=== PATIENT | female | born 1945 | race Two or more races ===

== ENCOUNTER 2020-07-25 11:34 | Inpatient (IN) | payer MEDICARE, OTHER ==
[~2020-07-25] VITALS: Ht 152.4 cm; Wt 100.0 kg
--- NOTE | 2020-07-25 11:45 | NUR ---
BIBA RA 39 from Home "Been Feeling sick x1wk cough/sweats now worse low O2 RA sats 86 given O2 at 6L now 95%". vs checked. hooked on monitor. iv access started blood draw done sent to lab. awaiting md hernandez.
--- NOTE | 2020-07-25 11:52 | NUR ---
MOVE SHEET SUBMITTED AND CALLED FOR TELE BED.
--- NOTE | 2020-07-25 11:59 | NUR ---
pt stated she is unable to provide urine specimen at the moment. will try to collect specimen after iv fluids.
[2020-07-25] MEDS ORDERED: IV NS 0.9% 1,000 ML BAG IV ONE (12:00)
[2020-07-25] MEDS ORDERED: LOSA1TAB39 PO (12:11)
[2020-07-25] MEDS ORDERED: ASPI-1420 PO (12:11)
[2020-07-25] MEDS ORDERED: MULT-661 PO (12:11)
[2020-07-25] MEDS ORDERED: ERGO500014 PO (12:11)
[2020-07-25] MEDS ORDERED: OMEG100019 PO (12:11)
[2020-07-25] MEDS ORDERED: MECL-159 PO (12:11)
[2020-07-25] MEDS ORDERED: CLON0.1T PO (12:11)
[2020-07-25] MEDS ORDERED: ESOM40CA52 PO (12:12)
[2020-07-25] MEDS ORDERED: VANCOMYCIN 1 GM in IV D5W 250 ML IV ONE (12:30)
[2020-07-25] MEDS ORDERED: PIPERACILLIN /TAZOBACTAM 3.375 G in IV D5W 50 ML IV ONE (12:30)
[2020-07-25 13:08] LABS: BASOPHILS % (AUTO) 0.2 % (0.0-2.0); HEMATOCRIT 38 % (33-45); HEMOGLOBIN 12.7 g/dL (11.5-14.8); LYMPHOCYTES # (AUTO) 1.2 /CMM (0.8-4.8); LYMPHOCYTES % (AUTO) 11.1 % (20.0-44.0); MEAN CORPUSCULAR HGB CONC 34 g/dl (31.0-36.0); MEAN CORPUSCULAR VOLUME 92 fL (82-100); MONOCYTES # (AUTO) 0.6 /CMM (0.1-1.30); MONOCYTES % (AUTO) 5.3 % (2.0-12.0); NEUTROPHILS # (AUTO) 8.7 /CMM (1.8-8.9); NEUTROPHILS % (AUTO) 82.4 % (43.0-81.0); PLATELET COUNT (AUTO) 394 /CMM (150-450); RED BLOOD CELL COUNT(AUTO) 4.12 MIL/uL (4.0-5.2); WHITE BLOOD COUNT (AUTO) 10.6 K/uL (4.3-11.0)
[2020-07-25] MEDS ORDERED: VANCOMYCIN 1.5 GM in IV D5W 500ml IV ONE (13:30)
--- NOTE | 2020-07-25 13:31 | NUR ---
urine collected sent to lab
[2020-07-25 14:17] LABS: BILIRUBIN,DIRECT 0.4 mg/dL (0.0-0.2); BILIRUBIN,TOTAL 0.8 mg/dL (0.2-1.0); CALCIUM, SERUM 9.2 mg/dL (8.5-10.1); CREATININE 1.2 mg/dL (0.6-1.3); POTASSIUM 3.5 mmol/L (3.5-5.1); TOTAL PROTEIN, SERUM 8.7 g/dL (6.4-8.2)
[2020-07-25] MEDS ORDERED: HYDROCODONE/APAP 5/325MG TABLET PO PRN (15:00)
[2020-07-25] MEDS ORDERED: Z GUARD REMEDY 2 OZ OINT TP PRN (15:00)
[2020-07-25] MEDS ORDERED: ONDANSETRON HCL/PF 4 MG/2 ML VIAL IVP PRN (15:00)
[2020-07-25] MEDS ORDERED: ACETAMINOPHEN 325 MG TABLET PO PRN (15:00)
[2020-07-25] MEDS ORDERED: ENOXAPARIN SODIUM 40 MG/0.4 ML DISP.SYRIN SQ SCH (15:00)
[2020-07-25] MEDS ORDERED: IV NS 0.9% 1,000 ML IV PRN (15:00)
[2020-07-25] MEDS ORDERED: MAGNESIUM HYDROXIDE 30 ML UDC PO PRN (15:00)
--- NOTE | 2020-07-25 15:23 | NUR ---
covid swab chas;ected sent to lab
[2020-07-25 16:30] LABS: BILIRUBIN,URINE NEGATIVE (NEGATIVE); COLOR,URINE YELLOW (YELLOW); LEUKOCYTE ESTERASE ,URINE SMALL (NEGATIVE); NITRITE, URINE POSITIVE (NEGATIVE); PROTEIN,URINE NEGATIVE (NEGATIVE); UGLUCOSE NEGATIVE (NEGATIVE); UROBILINOGEN,URINE 0.2 EU/dL (0.2)
[2020-07-25 16:37] LABS: BACTERIA,URINE 1+ /HPF (None Seen); SQUAMOUS EPITHELIAL CELL,UR Few /HPF (None Seen); URIC ACID CRYSTALS,URINE Many /HPF (None Seen)
--- NOTE | 2020-07-25 19:24 | NUR ---
covid antigen collected sent to lab
[2020-07-25] MEDS ORDERED: HYDROCHLOROTHIAZIDE 25 MG TABLET PO ONE (20:00)
[2020-07-25] MEDS ORDERED: AZITHROMYCIN 250 MG TABLET PO SCH ×2 (20:00)
[2020-07-25] MEDS ORDERED: LOSARTAN POTASSIUM 25 MG TABLET PO ONE (20:00)
--- NOTE | 2020-07-25 20:08 | NUR ---
REC'D POS KAIA. AWARE
--- NOTE | 2020-07-25 20:47 | NUR ---
JAEL BILLINGSLEY ENERGY MANAGER PAGED TO CLARIFY AZITHROMYCIN ORDER. AWAITING CALL BACK.
[2020-07-25] MEDS ORDERED: DEXAMETHASONE SOD PHOSPHATE 10 MG/ML VIAL ONE (20:57)
[2020-07-25] MEDS ORDERED: CEFTRIAXONE 1GM BAG (ER ONLY) 50 ML IV ONE (20:57)
[2020-07-25] MEDS ORDERED: LOSARTAN POTASSIUM 25 MG TABLET ONE (20:58)
[2020-07-25] MEDS ORDERED: HYDROCHLOROTHIAZIDE 25 MG TABLET ONE (20:58)
[2020-07-25] MEDS ORDERED: GUAIFENESIN LA 600 MG TABLET.SA PO ONE (20:58)
[2020-07-25] MEDS ORDERED: PIPERACILLIN /TAZOBACTAM 2.25 G in IV D5W 50 ML IV SCH (21:00)
[2020-07-25] MEDS: DEXAMETHASONE SOD PHOSPHATE 4 MG/ML VIAL IV SCH (21:15)
[2020-07-25] MEDS: CEFTRIAXONE 1 G in IV D5W 50 ML IV SCH (21:15)
[2020-07-25] MEDS: APIXABAN 5 MG TABLET PO SCH (21:16)
[2020-07-25] MEDS: GUAIFENESIN LA 600 MG TABLET.SA PO SCH (21:16)
--- NOTE | 2020-07-25 21:39 | NUR ---
REPORT GIVEN TO GOKUL GÓMEZ FOR ARIANNA; PT WILL BE TRANSPORTED TO 2ND FLOOR
[2020-07-25] MEDS ORDERED: AZITHROMYCIN 250 MG TABLET PO ONE (22:00)
[2020-07-25] MEDS ORDERED: ZOLPIDEM TARTRATE 5 MG TABLET PO PRN (22:00)
[2020-07-25 22:30] VITALS: BP 126/72
--- NOTE | 2020-07-25 23:00 | NUR ---
TELE/RN OPENING NOTES RECEIVED PATIENT FROM ER PATIENT ARRIVED ON UNIT AT 2200 HOURS. PATIENT SUSTAINED NO INJURIES DURING TRANSPORT TO ROOM 203. PATIENT SAFELY TRANSFERRED TO BED. PATIENT IS ALERT AND ORIENTED X 4. PATIENT ON 6L OXYGEN NC TOLERATING WELL AT 93%. PATIENTS BREATHING IS EVEN AND UNLABORED. NO SIGNS OF RESPIRATORY DISTRESS NOTED. PATIENT NOTED PAIN FREE AT THIS TIME. PATIENT HAS IV ACCESS ON LEFT AC #20G AND LEFT HAND #20G, FLUSHING WELL. PATIENT SKIN IS INTACT. PATIENT SIGNED BELONGINGS LIST. PATIENT IN NO SIGNS OF DISTRESS AT THIS TIME. SAFETY MEASURES ARE IN PLACE, BED IS LOCKED AND PLACED IN THE LOWEST POSITION, SIDE RAILS UP X 2, CALL LIGHT IS WITHIN REACH. WILL CONTINUE TO MONITOR THROUGH OUT SHIFT.
[2020-07-26] VITALS (12 sets, daily range): BP systolic 106–138; BP diastolic 67–101
--- NOTE | 2020-07-26 06:30 | NUR ---
TELE/RN CLOSING NOTES PATIENT IN BED SLEEPING. PATIENT IS ALERT AND ORIENTED X 3. PATIENT BREATHING IS EVEN AND UNLABORED. NO SIGNS OF RESPIRATORY DISTRESS NOTED. PATIENT IN NO SIGNS OF DISTRESS. TELE READING SR 73. PATIENT HAS IV ACCESS ON LEFT AC AND RIGHT HAND #20G RUNNING NS AT 75 ML/HR. ALL NEEDS HAVE BEEN MET DURING SHIFT. SAFETY MEASURES ARE IN PLACED, BED IS LOCKED AND PLACED IN THE LOWEST POSITION, SIDE RAILS UP X 2, CALL LIGHT WITHIN REACH. WILL ENDORSE CARE TO DAY SHIFT NURSE.
[2020-07-26 06:44] LABS: BASOPHILS % (AUTO) 0.2 % (0.0-2.0); EOSINOPHILS % (AUTO) 0.8 % (0.0-6.0); HEMATOCRIT 37 % (33-45); HEMOGLOBIN 12.2 g/dL (11.5-14.8); LYMPHOCYTES # (AUTO) 1.5 /CMM (0.8-4.8); LYMPHOCYTES % (AUTO) 18.1 % (20.0-44.0); MEAN CORPUSCULAR HGB CONC 33 g/dl (31.0-36.0); MEAN CORPUSCULAR VOLUME 93 fL (82-100); MONOCYTES # (AUTO) 0.5 /CMM (0.1-1.30); MONOCYTES % (AUTO) 6.2 % (2.0-12.0); NEUTROPHILS # (AUTO) 6.2 /CMM (1.8-8.9); NEUTROPHILS % (AUTO) 74.7 % (43.0-81.0); PLATELET COUNT (AUTO) 374 /CMM (150-450); RED BLOOD CELL COUNT(AUTO) 3.97 MIL/uL (4.0-5.2); WHITE BLOOD COUNT (AUTO) 8.3 K/uL (4.3-11.0)
[2020-07-26 07:23] LABS: CALCIUM, SERUM 9.5 mg/dL (8.5-10.1); CREATININE 0.9 mg/dL (0.6-1.3); MAGNESIUM 2.2 mg/dL (1.8-2.4); PHOSPHORUS 4.5 mg/dL (2.5-4.9); POTASSIUM 3.6 mmol/L (3.5-5.1)
--- NOTE | 2020-07-26 07:30 | NUR ---
TELE/RN OPENING NOTE Patient is resting in bed, A&O x 3, easily arousable to verbal and tactile stimulation, Portuguese speaking. Breathing even and non-labored on 6 L via nasal cannula, no SOB noted. No respiratory or cardiac distress noted. On tele monitor, reading SR with BBB and PVCs 67. IV accesses noted on LAC #20g and L hand # 20g, both patent and intact, and flushing well, running NS @ 75 ml/hr. Bed locked to its lowest position, side rails x 2 up, call light in hand. Will continue with current medical management.
[2020-07-26] MEDS: LOSARTAN POTASSIUM 25 MG TABLET PO SCH (09:00)
[2020-07-26 09:40] LABS: C-REACTIVE PROTEIN 16.9 mg/dL (0.0-0.9)
[2020-07-26] MEDS: HYDROCHLOROTHIAZIDE 25 MG TABLET PO SCH (09:59)
[2020-07-26] MEDS: ASPIRIN EC 81 MG TABLET.DR PO SCH (09:59)
[2020-07-26] MEDS: MULTIVIT W/MINERALS 1 TAB TABLET PO SCH (10:00)
[2020-07-26] MEDS: AZITHROMYCIN 250 MG TABLET PO SCH (10:00)
[2020-07-26] MEDS: APIXABAN 5 MG TABLET PO SCH ×2 (10:01→16:47)
[2020-07-26] MEDS: PANTOPRAZOLE 40 MG TABLET.DR PO SCH (10:01)
[2020-07-26] MEDS: GUAIFENESIN LA 600 MG TABLET.SA PO SCH ×2 (10:01→21:47)
[2020-07-26] MEDS: DEXAMETHASONE SOD PHOSPHATE 4 MG/ML VIAL IV SCH (10:03)
[2020-07-26] MEDS ORDERED: REMDESIVIR (CHARGED) 200 MG, *LOADING DOSE 1 EA in IV NS 0.9% 210 ML IV ONE (12:00)
[2020-07-26] MEDS ORDERED: VANCOMYCIN 1.25 GM in IV D5W 250 ML IV SCH (13:00)
--- NOTE | 2020-07-26 13:02 | NUR ---
TELE/RN NOTE HAND DELIVERED COPY OF CONVALESCENT PLASMA IND FORM TO BLOOD BANK.
[2020-07-26] MEDS ORDERED: TEMAZEPAM 7.5 MG CAPSULE PO PRN (16:30)
--- NOTE | 2020-07-26 19:00 | NUR ---
TELE/RN CLOSING NOTE Patient is awake in bed, A&O x 3. All needs met and attended to. Breathing even and non-labored on 5 L via nasal cannula, no SOB noted. No respiratory or cardiac distress noted. On tele monitor, reading SR with BBB and PVCs 95. IV accesses noted on LAC #20g and L hand # 20g, both patent and intact, and flushing well. Fall precautions maintained. Will endorse to gravity prospecting operator nurse.
--- NOTE | 2020-07-26 19:30 | NUR ---
TELE/RN OPENING NOTES: RECEIVED PATIENT AWAKE IN BED, A&O X 3. [place] BUT ABLE TO UNDERSTAND AND COMMUNICATE MINIMAL YAKUT. BREATHING EVEN AND NON-LABORED ON 5 L VIA NASAL CANNULA, NO SOB NOTED. NO RESPIRATORY OR CARDIAC DISTRESS NOTED. ON TELE MONITOR, READING SR WITH BBB 70. IV ACCESSES NOTED ON LAC #20G AND L HAND # 20G, BOTH PATENT AND INTACT, AND FLUSHING WELL. FALL PRECAUTIONS MAINTAINED. HAS CONVALESCENT PLASMA SCHEDULED FOR TONIGHT. CONSENTS ARE SIGNED AND READY. WILL CONTINUE TO MONITOR PT ACCORDINGLY AND CONTINUE PLAN OF CARE.
--- NOTE | 2020-07-26 20:30 | NUR ---
TELE/RN NOTES: INITIAL VS STABLE AND WNL. BP: 138/80 HR: 75 TEMP 98.4. RR: 20. CONVALESCENT PLASMA COSIGNED AND WITNESSED BY 2 RNs, ROMY AND MARCELINO. STARTED TRANSFUSING AT 75MLS/HR AT THIS TIME AT LEFT HAND #20G. WILL CONTINUE TO MONITOR FOR ANY REACTIONS.
--- NOTE | 2020-07-26 20:45 | NUR ---
TELE/RN NOTES: VS STABLE AND WNL. CONVALESCENT PLASMA TRANSFUSING AT 75MLS/HR AT THIS TIME AT LEFT HAND #20G. NO ADVERSE REACTIONS AT THIS TIME. PT IS STABLE. NO C/O PAIN. WILL CONTINUE TO MONITOR PT AND VS Q15 MIN.
--- NOTE | 2020-07-26 22:27 | NUR ---
TELE/RN NOTES: CONVALESCENT PLASMA TRANSFUSED COMPLETELY. NO ADVERSE REACTIONS. PT STABLE. NO C/O PAIN. VSS AND WNL. WILL CONTINUE TO MONITOR.
[2020-07-26] MEDS: CEFTRIAXONE 1 G in IV D5W 50 ML IV SCH (22:33)
[2020-07-27] VITALS: BP 122/84
[2020-07-27 04:00] VITALS: BP 130/82
--- NOTE | 2020-07-27 06:19 | NUR ---
TELE/RN CLOSING NOTES: PT REMAINS A&O X 3. REMAINED STABLE ALL NIGHT, S/P CONVALESCENT PLASMA LAST NIGHT. BREATHING EVEN AND NON-LABORED ON 4 L VIA NASAL CANNULA, NO SOB NOTED. NO RESPIRATORY OR CARDIAC DISTRESS NOTED. ON TELE MONITOR, READING SR WITH BBB 70. IV ACCESSES NOTED ON LAC #20G AND L HAND # 20G, BOTH PATENT AND INTACT, AND FLUSHING WELL. FALL PRECAUTIONS MAINTAINED. KEPT PT WARM AND COMFORTABLE IN BED, CLEAN AND DRY. ALL NURSING NEEDS MET AND RENDERED, ALL DUE MEDS GIVEN ORDERED. WILL ENDORSED TO DAY SHIFT FOR ARIANNA.
[2020-07-27 07:13] LABS: BASOPHILS % (AUTO) 0.2 % (0.0-2.0); EOSINOPHILS % (AUTO) 0.1 % (0.0-6.0); HEMATOCRIT 36 % (33-45); LYMPHOCYTES # (AUTO) 1.5 /CMM (0.8-4.8); LYMPHOCYTES % (AUTO) 15.9 % (20.0-44.0); MEAN CORPUSCULAR HGB CONC 33 g/dl (31.0-36.0); MEAN CORPUSCULAR VOLUME 92 fL (82-100); MONOCYTES # (AUTO) 0.7 /CMM (0.1-1.30); MONOCYTES % (AUTO) 7.1 % (2.0-12.0); NEUTROPHILS # (AUTO) 7.4 /CMM (1.8-8.9); NEUTROPHILS % (AUTO) 76.7 % (43.0-81.0); PLATELET COUNT (AUTO) 434 /CMM (150-450); RED BLOOD CELL COUNT(AUTO) 3.93 MIL/uL (4.0-5.2); WHITE BLOOD COUNT (AUTO) 9.7 K/uL (4.3-11.0)
--- NOTE | 2020-07-27 07:20 | NUR ---
REFERENCE AND INSTRUCTION LIBRARIAN OPENING NOTES: PATIENT IS AWAKE AND VERBALLY RESPONSIVE. A/O X3, ABLE TO MAKE NEEDS KNOWN. BREATHING EVEN AND NON-LABORED, ON 4L O2 VIA NASAL CANNULA, NO SOB. ON TELE MONITORING, READING OF SR WITH BBB, HR IN THE 70'S. IV LINE ON LAC #20G AND L HAND # 20G, PATENT AND INTACT. SAFETY PRECAUTIONS IN PLACE: BED LOCKED AND ON LOWEST POSITION, SR UP X2, CALL LIGHT W/IN REACH. WILL CONTINUE TO MONITOR.
[2020-07-27 07:51] LABS: ALBUMIN 2.6 g/dL (3.4-5.0); BILIRUBIN,DIRECT 0.3 mg/dL (0.0-0.2); BILIRUBIN,TOTAL 0.7 mg/dL (0.2-1.0); CALCIUM, SERUM 9.2 mg/dL (8.5-10.1); PHOSPHORUS 3.8 mg/dL (2.5-4.9); POTASSIUM 3.5 mmol/L (3.5-5.1)
[2020-07-27 08:00] VITALS: BP 156/81
[2020-07-27] MEDS: LOSARTAN POTASSIUM 25 MG TABLET PO SCH (09:07)
[2020-07-27] MEDS: HYDROCHLOROTHIAZIDE 25 MG TABLET PO SCH (09:08)
[2020-07-27] MEDS: PANTOPRAZOLE 40 MG TABLET.DR PO SCH (09:08)
[2020-07-27] MEDS: GUAIFENESIN LA 600 MG TABLET.SA PO SCH ×2 (09:08→20:47)
[2020-07-27] MEDS: MULTIVIT W/MINERALS 1 TAB TABLET PO SCH (09:08)
[2020-07-27] MEDS: AZITHROMYCIN 250 MG TABLET PO SCH (09:08)
[2020-07-27] MEDS: ASPIRIN EC 81 MG TABLET.DR PO SCH (09:08)
[2020-07-27] MEDS: DEXAMETHASONE SOD PHOSPHATE 4 MG/ML VIAL IV SCH (09:09)
[2020-07-27] MEDS: APIXABAN 5 MG TABLET PO SCH ×2 (09:10→16:28)
[2020-07-27] MEDS: REMDESIVIR (CHARGED) 100 MG in IV NS 0.9% 100 ML IV SCH (11:18)
[2020-07-27 12:00] VITALS: BP 142/88
[2020-07-27 16:00] VITALS: BP 113/72
--- NOTE | 2020-07-27 16:00 | NUR ---
RN NOTES PATIENT ABLE TO AMBULATE TO BATHROOM, STEADY GAIT.
--- NOTE | 2020-07-27 19:10 | NUR ---
TOOL ENGINEER CLOSING NOTES PATIENT IS AWAKE AND VERBALLY RESPONSIVE. A/O X3, ABLE TO MAKE NEEDS KNOWN. BREATHING EVEN AND NON-LABORED, CONTINUES ON 4L O2 VIA NASAL CANNULA, NO SOB. ON TELE MONITORING, READING OF SR WITH BBB, HR IN MID 70'S. IV LINE ON RFA PATENT AND INTACT. SAFETY PRECAUTIONS MAINTAINED: BED LOCKED AND ON LOWEST POSITION, SR UP X2, CALL LIGHT W/IN REACH. WILL ENDORSE TO BUSINESS OBJECTS ARCHITECT RN FOR ARIANNA.
--- NOTE | 2020-07-27 19:38 | NUR ---
PRINCIPAL CYBER ENGINEER NOTES PATIENT IN BED, AWAKE, ALERT AND ORIENTED X3. BREATHING EVEN AND UNLABORED ON 4L NC. SHOWS NO SIGNS OF ACUTE RESPIRATORY DISTRESS. NO ACUTE PAIN. TELE MONITOR SR WITH BBB. IB ON R FA 22G ITS CLEAN DRY AND INTACT. SHOWS NO SIGNS OF INFILTRATION, NO REDNESS. SAFETY PRECAUTIONS IN PLACE. BED IN LOWEST POSITION, LOCKED, AND CALL LIGHT KEPT WITHIN REACH. WILL CONTINUE TO MONITOR
[2020-07-27 20:00] VITALS: BP 128/74
[2020-07-27] MEDS: CEFTRIAXONE 1 G in IV D5W 50 ML IV SCH (20:47)
[2020-07-28] VITALS: BP 106/73
[2020-07-28 04:00] VITALS: BP 131/77
[2020-07-28 06:23] LABS: BASOPHILS % (AUTO) 0.3 % (0.0-2.0); EOSINOPHILS % (AUTO) 0.5 % (0.0-6.0); HEMATOCRIT 35 % (33-45); HEMOGLOBIN 11.7 g/dL (11.5-14.8); LYMPHOCYTES # (AUTO) 1.9 /CMM (0.8-4.8); LYMPHOCYTES % (AUTO) 21.5 % (20.0-44.0); MEAN CORPUSCULAR HGB CONC 34 g/dl (31.0-36.0); MEAN CORPUSCULAR VOLUME 91 fL (82-100); MONOCYTES # (AUTO) 0.8 /CMM (0.1-1.30); NEUTROPHILS # (AUTO) 6.1 /CMM (1.8-8.9); NEUTROPHILS % (AUTO) 68.7 % (43.0-81.0); PLATELET COUNT (AUTO) 427 /CMM (150-450); RED BLOOD CELL COUNT(AUTO) 3.84 MIL/uL (4.0-5.2); WHITE BLOOD COUNT (AUTO) 8.9 K/uL (4.3-11.0)
--- NOTE | 2020-07-28 06:41 | NUR ---
PANTOGRAPH II ENGRAVER NOTES PATIENT IN BED, AWAKE, ALERT AND ORIENTED X3. BREATHING EVEN AND UNLABORED ON 4L NC. SHOWS NO SIGNS OF ACUTE RESPIRATORY DISTRESS. NO ACUTE PAIN. TELE MONITOR SR WITH BBB. IV ON R FA 22G ITS CLEAN DRY AND INTACT. SHOWS NO SIGNS OF INFILTRATION, NO REDNESS. ALL DUE MEDICATIONS. ALL NEEDS ATTENDED TO. SAFETY PRECAUTIONS IN PLACE. BED IN LOWEST POSITION, LOCKED, AND CALL LIGHT KEPT WITHIN REACH. WILL ENDORSE TO ONCOMING NURSE.
--- NOTE | 2020-07-28 07:15 | NUR ---
PROGRAM MEDICAL DIRECTOR OPENING NOTES PATIENT IS AWAKE AND VERBALLY RESPONSIVE, SEEN AMBULATING IN THE ROOM. A/O X3, ABLE TO MAKE NEEDS KNOWN. BREATHING EVEN AND UNLABORED, ON 4L O2 VIA NASAL CANNULA; NO COMPLAINT OF SOB NOR DIZZINESS WHEN AMBULATING IN THE ROOM. ON TELE MONITORING, READING OF SR WITH BBB, HR IN THE 70'S. IV LINE ON RFA PATENT AND INTACT. SAFETY PRECAUTIONS IN PLACE: BED LOCKED AND ON LOWEST POSITION, SR UP X2, CALL LIGHT W/IN REACH. WILL CONTINUE TO MONITOR.
[2020-07-28 07:35] LABS: ALBUMIN 2.6 g/dL (3.4-5.0); BILIRUBIN,DIRECT 0.2 mg/dL (0.0-0.2); BILIRUBIN,TOTAL 0.4 mg/dL (0.2-1.0); CALCIUM, SERUM 8.9 mg/dL (8.5-10.1); CREATININE 0.9 mg/dL (0.6-1.3); POTASSIUM 3.2 mmol/L (3.5-5.1); TOTAL PROTEIN, SERUM 7.6 g/dL (6.4-8.2)
[2020-07-28] MEDS: MULTIVIT W/MINERALS 1 TAB TABLET PO SCH (08:09)
[2020-07-28] MEDS: AZITHROMYCIN 250 MG TABLET PO SCH (08:09)
[2020-07-28] MEDS: HYDROCHLOROTHIAZIDE 25 MG TABLET PO SCH (08:10)
[2020-07-28] MEDS: ASPIRIN EC 81 MG TABLET.DR PO SCH (08:10)
[2020-07-28] MEDS: GUAIFENESIN LA 600 MG TABLET.SA PO SCH ×2 (08:10→21:02)
[2020-07-28] MEDS: PANTOPRAZOLE 40 MG TABLET.DR PO SCH (08:11)
[2020-07-28] MEDS: LOSARTAN POTASSIUM 25 MG TABLET PO SCH (08:11)
[2020-07-28] MEDS: DEXAMETHASONE SOD PHOSPHATE 4 MG/ML VIAL IV SCH (08:11)
[2020-07-28] MEDS: APIXABAN 5 MG TABLET PO SCH ×2 (08:19→16:40)
[2020-07-28] MEDS: POTASSIUM CHLORIDE 20 MEQ TAB.PRT.SR PO SCH ×2 (10:22→11:58)
[2020-07-28] MEDS: REMDESIVIR (CHARGED) 100 MG in IV NS 0.9% 100 ML IV SCH (11:59)
--- NOTE | 2020-07-28 14:30 | NUR ---
RN NOTES PATIENT'S O2 DECREASED TO 3L/MIN VIA N/C, O2 SAT BETWEEN 93-96%, NO SOB NOR RESPIRATORY DISTRESS. PATIENT CONTINUES TO AMBULATE W/IN THE ROOM W/ NO GAIT CHANGES. WILL CONTINUE TO MONITOR.
--- NOTE | 2020-07-28 18:50 | NUR ---
LIME PLANT OPERATOR CLOSING NOTES PATIENT IS RESTING UNAWAKE AND VERBALLY RESPONSIVE. A/O X3, ABLE TO MAKE NEEDS KNOWN. BREATHING EVEN AND NON-LABORED, DECREASED O2 TO 3L VIA NASAL CANNULA, NO SOB. ON TELE MONITORING, READING OF SR W/ HR IN 70'S, NO CARDIAC DISTRESS. IV LINE ON L WRIST PATENT AND INTACT. SAFETY PRECAUTIONS MAINTAINED: BED LOCKED AND ON LOWEST POSITION, SR UP X2, CALL LIGHT W/IN REACH. WILL ENDORSE TO CHECKER AND PACKER RN FOR ARIANNA.
--- NOTE | 2020-07-28 19:05 | NUR ---
RN NOTE Patient is noted in bed, awake, alert and oriented x3. Breathing even and non labored continues on 2L via NC and is tolerating well with no signs of acute distress or shortness of breath. Patient continues on tele monitor. IV site noted to L wrist 22G noted patent and intact. Safety precautions in place with bed in lowest position and locked. All needs attended to promptly. Call light within reach. Will endorse plan of care as ordered. Addendum: 07/30/20 at 0719 by CECE BALLARD RN entered in error
--- NOTE | 2020-07-28 19:33 | NUR ---
RN NOTES PATIENT IS RESTING UNAWAKE AND VERBALLY RESPONSIVE. A/O X3, ABLE TO MAKE NEEDS KNOWN. BREATHING EVEN AND NON-LABORED,O2 3L VIA NASAL CANNULA, NO SOB. ON TELE MONITORING, READING OF SR W/ HR IN 70'S, NO CARDIAC DISTRESS. IV LINE ON L WRIST PATENT AND INTACT. SAFETY PRECAUTIONS MAINTAINED: BED LOCKED AND ON LOWEST POSITION, SR UP X2, CALL LIGHT W/IN REACH. WILL CONTINUE TO MONITOR
[2020-07-28 20:00] VITALS: BP 100/55
[2020-07-28] MEDS: CEFTRIAXONE 1 G in IV D5W 50 ML IV SCH (21:02)
[2020-07-29] VITALS: BP 139/79
[2020-07-29 04:00] VITALS: BP 133/81
--- NOTE | 2020-07-29 06:51 | NUR ---
RN NOTES PATIENT IS RESTING AWAKE AND VERBALLY RESPONSIVE. A/O X3, ABLE TO MAKE NEEDS KNOWN. BREATHING EVEN AND NON-LABORED,O2 3L VIA NASAL CANNULA, NO SOB. ON TELE MONITORING, READING OF SR W/ HR IN 70'S, NO CARDIAC DISTRESS. IV LINE ON L WRIST PATENT AND INTACT. SAFETY PRECAUTIONS MAINTAINED: BED LOCKED AND ON LOWEST POSITION, SR UP X2, CALL LIGHT W/IN REACH. WILL ENDORSE CARE TO DAY SHIFT NURSE
[2020-07-29 07:15] LABS: BASOPHILS % (AUTO) 0.5 % (0.0-2.0); EOSINOPHILS % (AUTO) 2.1 % (0.0-6.0); HEMATOCRIT 37 % (33-45); HEMOGLOBIN 12.1 g/dL (11.5-14.8); LYMPHOCYTES # (AUTO) 2.2 /CMM (0.8-4.8); LYMPHOCYTES % (AUTO) 31.6 % (20.0-44.0); MEAN CORPUSCULAR HGB CONC 33 g/dl (31.0-36.0); MEAN CORPUSCULAR VOLUME 92 fL (82-100); MONOCYTES # (AUTO) 0.7 /CMM (0.1-1.30); MONOCYTES % (AUTO) 10.8 % (2.0-12.0); NEUTROPHILS # (AUTO) 3.8 /CMM (1.8-8.9); PLATELET COUNT (AUTO) 419 /CMM (150-450); RED BLOOD CELL COUNT(AUTO) 3.97 MIL/uL (4.0-5.2); WHITE BLOOD COUNT (AUTO) 6.9 K/uL (4.3-11.0)
[2020-07-29 07:44] LABS: CALCIUM, SERUM 9.3 mg/dL (8.5-10.1); MAGNESIUM 1.8 mg/dL (1.8-2.4); PHOSPHORUS 5.2 mg/dL (2.5-4.9); POTASSIUM 3.5 mmol/L (3.5-5.1)
[2020-07-29 07:45] LABS: C-REACTIVE PROTEIN 4.1 mg/dL (0.0-0.9)
[2020-07-29 08:00] VITALS: BP 113/69
--- NOTE | 2020-07-29 08:00 | NUR ---
RN Opening note Received patient in bed, awaken able to responds all stimuli, Pt does no appears pain or distress. Skin is warm to touch keep clean/dry intact IV site on right wrist g 22, respiratory even and unlabored with oxygen at 4L via NC , O2sat 93. Kept locked bed with elevated HOB for aspiration precaution and ensure airway and lowest bed foe safety. Call light within reach, will continue to monitor.
[2020-07-29 08:28] LABS: ALBUMIN 2.7 g/dL (3.4-5.0); BILIRUBIN,DIRECT 0.2 mg/dL (0.0-0.2); BILIRUBIN,TOTAL 0.3 mg/dL (0.2-1.0); TOTAL PROTEIN, SERUM 7.7 g/dL (6.4-8.2)
[2020-07-29] MEDS: DEXAMETHASONE SOD PHOSPHATE 4 MG/ML VIAL IV SCH (08:44)
[2020-07-29] MEDS: AZITHROMYCIN 250 MG TABLET PO SCH (08:45)
[2020-07-29] MEDS: PANTOPRAZOLE 40 MG TABLET.DR PO SCH (08:45)
[2020-07-29] MEDS: GUAIFENESIN LA 600 MG TABLET.SA PO SCH ×2 (08:45→20:20)
[2020-07-29] MEDS: ASPIRIN EC 81 MG TABLET.DR PO SCH (08:47)
[2020-07-29] MEDS: HYDROCHLOROTHIAZIDE 25 MG TABLET PO SCH (08:47)
[2020-07-29] MEDS: LOSARTAN POTASSIUM 25 MG TABLET PO SCH (08:48)
[2020-07-29] MEDS: MULTIVIT W/MINERALS 1 TAB TABLET PO SCH (08:50)
[2020-07-29] MEDS: APIXABAN 5 MG TABLET PO SCH ×2 (08:51→17:32)
[2020-07-29 12:00] VITALS: BP 116/68
[2020-07-29] MEDS: REMDESIVIR (CHARGED) 100 MG in IV NS 0.9% 100 ML IV SCH (12:45)
[2020-07-29 16:00] VITALS: BP 131/67
--- NOTE | 2020-07-29 18:36 | NUR ---
RN closing Patient in bed resting, does no appears distress or discomfort. Skin is warm to touch, keep clean/dry, intact midline on right wrist 22g. Respiratory even and unlabored with oxygen at 2L via NC O2sat 94%. Kept elevated HOB for ensure air way and aspiration precaution and lowest bed for safety. Call light within reach, will endorse shift leader Addendum: 07/29/20 at 1844 by RACH BENOIT RN Error
--- NOTE | 2020-07-29 18:44 | NUR ---
RN closing Patient in bed resting, does no appears distress or discomfort. Skin is warm to touch, keep clean/dry, intact IV site on right wrist 22g. Respiratory even and unlabored with oxygen at 2L via NC O2sat 94%. Kept elevated HOB for ensure air way and aspiration precaution and lowest bed for safety. Call light within reach, will endorse hourly shift
--- NOTE | 2020-07-29 19:05 | NUR ---
RN NOTE Patient is noted in bed, awake, alert and oriented x3. Breathing even and non labored continues on 2L via NC and is tolerating well with no signs of acute distress or shortness of breath. Patient continues on tele monitor. IV site noted to L wrist 22G noted patent and intact. Safety precautions in place with bed in lowest position and locked. All needs attended to promptly. Call light within reach. Will endorse plan of care as ordered.
[2020-07-29 20:00] VITALS: BP 114/67
[2020-07-29] MEDS: CEFTRIAXONE 1 G in IV D5W 50 ML IV SCH (20:19)
[2020-07-30] VITALS: BP 99/60
[2020-07-30 04:00] VITALS: BP 102/70
[2020-07-30 06:38] LABS: BASOPHILS % (AUTO) 0.3 % (0.0-2.0); HEMATOCRIT 37 % (33-45); HEMOGLOBIN 12.5 g/dL (11.5-14.8); LYMPHOCYTES # (AUTO) 2.1 /CMM (0.8-4.8); LYMPHOCYTES % (AUTO) 28.2 % (20.0-44.0); MEAN CORPUSCULAR HGB CONC 34 g/dl (31.0-36.0); MEAN CORPUSCULAR VOLUME 91 fL (82-100); MONOCYTES # (AUTO) 0.8 /CMM (0.1-1.30); MONOCYTES % (AUTO) 11.2 % (2.0-12.0); NEUTROPHILS # (AUTO) 4.4 /CMM (1.8-8.9); NEUTROPHILS % (AUTO) 59.3 % (43.0-81.0); PLATELET COUNT (AUTO) 411 /CMM (150-450); RED BLOOD CELL COUNT(AUTO) 4.05 MIL/uL (4.0-5.2); WHITE BLOOD COUNT (AUTO) 7.5 K/uL (4.3-11.0)
--- NOTE | 2020-07-30 07:04 | NUR ---
MASON LINER OPENING NOTE RECEIVED PT RESTING COMFORTABLY IN BED AT THIS TIME. PT AOX3-4. PT ABLE TO MAKE NEEDS KNOWN. NO SOB NOTED, NO S/S OF ANY ACUTE DISTRESS NOTED, NO C/O PAIN AT THIS TIME. PT NOTED ON OXYGEN 2LPM VIA NC. PT ON EXTERNAL TELE SEPTIC CLEANER READING SR WITH PVC 97. IV ACCESS NOTED IN LEFT WRIST G#22, INTACT, PATENT AND FLUSHING WELL. ASPIRATIONS AND SAFETY PRECAUTIONS IN PLACE AND MAINTAINED AT ALL TIMES. BED IN LOWEST LOCKED POSITION, SIDE RAILS UP, HOB ELEVATED, TABLE AND CALL LIGHT WITHIN REACH. WILL CONTINUE TO MONITOR.
[2020-07-30 07:24] LABS: ALBUMIN 2.7 g/dL (3.4-5.0); BILIRUBIN,DIRECT 0.2 mg/dL (0.0-0.2); BILIRUBIN,TOTAL 0.3 mg/dL (0.2-1.0); CALCIUM, SERUM 9.1 mg/dL (8.5-10.1); CREATININE 0.8 mg/dL (0.6-1.3); POTASSIUM 3.8 mmol/L (3.5-5.1); TOTAL PROTEIN, SERUM 7.8 g/dL (6.4-8.2)
[2020-07-30 08:00] VITALS: BP 126/88
[2020-07-30] MEDS: PANTOPRAZOLE 40 MG TABLET.DR PO SCH (08:52)
[2020-07-30] MEDS: GUAIFENESIN LA 600 MG TABLET.SA PO SCH (08:52)
[2020-07-30] MEDS: MULTIVIT W/MINERALS 1 TAB TABLET PO SCH (08:53)
[2020-07-30] MEDS: AZITHROMYCIN 250 MG TABLET PO SCH (08:53)
[2020-07-30] MEDS: ASPIRIN EC 81 MG TABLET.DR PO SCH (08:54)
[2020-07-30] MEDS: DEXAMETHASONE SOD PHOSPHATE 4 MG/ML VIAL IV SCH (08:54)
[2020-07-30] MEDS: APIXABAN 5 MG TABLET PO SCH ×2 (08:55→17:48)
[2020-07-30] MEDS: LOSARTAN POTASSIUM 25 MG TABLET PO SCH (09:10)
[2020-07-30] MEDS: HYDROCHLOROTHIAZIDE 25 MG TABLET PO SCH (09:10)
[2020-07-30 12:00] VITALS: BP 117/65
[2020-07-30] MEDS: REMDESIVIR (CHARGED) 100 MG in IV NS 0.9% 100 ML IV SCH (12:01)
[2020-07-30 16:00] VITALS: BP 124/80
--- NOTE | 2020-07-30 19:00 | NUR ---
PROFESSIONAL EMPLOYER CONSULTANT NOTES PT DISCHARGED TO HOME AT THIS TIME. PT MEDICALLY CLEARED FOR DISCHARGE. ALL CARE,LA NEEDS, MEDICATIONS AND TREATMENT ADMINISTERED ANTICIPATED PER ORDER. PT KEPT CLEAN AND DRY. DISCHARGE INSTRUCTIONS PROVIDED FOR. PT DISCHARGE HOME WITH DME-OXYGEN FOR HOME USE. EDUCATION PROVIDED TO PT AND SON. PT VERBALIZED UNDERSTANDING. PT BELONGINGS ACCOUNTED FOR, SIGNED BY PT AND RETURNED TO PT. IV ACCESS REMOVED, PRESSURE APPLIED, SECURED WITH GAUZE AND TAPE. NO S/O BLEEDING NOTED. ID BAND REMOVED. ID BAND REMOVED. PT TRANSPORTED OUT OF UNIT IN STABLE CONDITION ON A WHEEL CHAIR BY TWO NURSES, RICO CARRINGTON AND RICO ORANTES. PT PICKED UP BY SON IN PRIVATE CAR. DR GLORIA DRAPER
[2020-08-01] MEDS ORDERED: ERGOCALCIFEROL (VITAMIN D 2) 50,000 UNIT CAPSULE PO SCH (09:00)
== END 2020-07-30 19:00 | disposition home health service (06) | DRG 871 ==
LOC: ER 11:41 → TRANSITION 18:12 → TELE2 21:19
PROVIDERS: ADMIT Nurse Practitioner Acute Care
PROC: XW033E5 Introduction of Remdesivir Anti-infective into Peripheral Vein, Percutaneous Approach, New Technology Group 5 (ICD-10-PCS; principal; 2020-07-26)
PROC: XW13325 Transfusion of Convalescent Plasma (Nonautologous) into Peripheral Vein, Percutaneous Approach, New Technology Group 5 (ICD-10-PCS; 2020-07-26)
DX: A41.89 Other specified sepsis (principal); U07.1 COVID-19; J12.82 Pneumonia due to coronavirus disease 2019; J96.01 Acute respiratory failure with hypoxia; J15.9 Unspecified bacterial pneumonia; N39.0 Urinary tract infection, site not specified; E44.1 Mild protein-calorie malnutrition; Z68.41 Body mass index [BMI] 40.0-44.9, adult; I10 Essential (primary) hypertension; E86.0 Dehydration; E88.09 Other disorders of plasma-protein metabolism, not elsewhere classified; E66.01 Morbid (severe) obesity due to excess calories
CPT/HCPCS: 36415; 71045-TC; 80048-TC; 80061-TC; 80076-TC; 81001; 82728-TC; 82962-TC; 83605-TC; 83615-TC; 83735-TC; 84100-TC; 84484-TC; 85025-TC; 85378-TC; 85610-TC; 85730-TC; 86140-TC; 86850-TC; 87040-TC; 87081-TC; 87086-TC; A4216; G0378; J0696; J1100; J2543; J3370; J7030; J7050; J7060; P9017-BL; U0003